=== PATIENT | female | born 1940 | race Caucasian/White ===

== ENCOUNTER 2021-04-15 12:25 | Emergency (ER) | payer MEDICARE, OTHER ==
[~2021-04-15] VITALS: Ht 165.1 cm; Wt 78.5 kg
[2021-04-15 12:31] VITALS: BP 137/76
--- NOTE | 2021-04-15 13:24 | NUR ---
Ear irrigated by [facility] as per orders
[2021-04-15] MEDS ORDERED: AMOX500C2 PO (13:43)
[2021-04-15] MEDS ORDERED: NEOM10DR11 LEFT EAR (13:43)
== END 2021-04-15 13:49 | disposition home or self-care (01) ==
LOC: ER 12:26
DX: H61.22 Impacted cerumen, left ear (principal); H92.02 Otalgia, left ear; I10 Essential (primary) hypertension

== ENCOUNTER 2021-11-10 12:08 | Emergency (ER) | payer OTHER ==
[~2021-11-10] VITALS: Ht 157.5 cm; Wt 68.0 kg
[~2021-11-10 12:08] MED LIST: AMOX500C2 PO; NEOM10DR11 LEFT EAR
--- NOTE | 2021-11-10 12:20 | NUR ---
BIBFAMILY C/O L MIDDLE FINGER PAIN AND SWELLING X 3 DAYS. AMBULATORY, SEATED ON CHAIR. SEEN AND EXAMMINED BY
--- NOTE | 2021-11-10 13:10 | NUR ---
X-RAY OF THE L MIDDLE FINGER DONE
[2021-11-10] MEDS ORDERED: IBUP-1953 PO (14:06)
--- NOTE | 2021-11-10 14:11 | NUR ---
Patient discharged to home in stable condition. Written and verbal after care instructions given. Patient verbalizes understanding of instruction.
[2021-11-10 14:15] VITALS: BP 145/80
== END 2021-11-10 14:11 | disposition home or self-care (01) ==
LOC: ER 12:16
DX: M15.4 Erosive (osteo)arthritis (principal); I10 Essential (primary) hypertension; Z79.899 Other long term (current) drug therapy
CPT/HCPCS: 73140-TC